=== PATIENT | male | born 1935 | race American Indian/Alaskan Native ===

== ENCOUNTER 2017-07-18 09:51 | Outpatient (CLI) | payer MEDICARE ==
--- NOTE | 2017-07-19 12:40 | Mammography Report ---
BILATERAL DIGITAL DIAGNOSTIC MAMMOGRAM with CAD and LEFT BREAST ULTRASOUND: 07/18/17 CLINICAL: 81-year-old male with left mastodynia. COMPARISON:07/26/16 mammogram and left breast ultrasound from [facility] FINDINGS: The breasts are almost entirely fatty. Stable moderate left subareolar fibroglandular densities. No mass, architectural distortion or suspicious calcifications.The right breast is negative. Ultrasound of the left breast (including all four quadrants and the retroareolar area) was performed. Stable retroareolar fibroglandular structures. No change compared to the prior exam. No mass or cyst. IMPRESSION: Stable left benign gynecomastia. BI-RADS CATEGORY: 2 -- Benign RECOMMENDATION: Clinical follow-up. COMMENT: Patient follow-up letters are generated by our [employer] application.
--- NOTE | 2017-07-19 12:52 | Ultrasound Report ---
BILATERAL DIGITAL DIAGNOSTIC MAMMOGRAM with CAD and LEFT BREAST ULTRASOUND: 07/18/17 CLINICAL: 81-year-old male with left mastodynia. COMPARISON:07/26/16 mammogram and left breast ultrasound from [facility] FINDINGS: The breasts are almost entirely fatty. Stable moderate left subareolar fibroglandular densities. No mass, architectural distortion or suspicious calcifications.The right breast is negative. Ultrasound of the left breast (including all four quadrants and the retroareolar area) was performed. Stable retroareolar fibroglandular structures. No change compared to the prior exam. No mass or cyst. IMPRESSION: Stable left benign gynecomastia. BI-RADS CATEGORY: 2 -- Benign RECOMMENDATION: Clinical follow-up. COMMENT: Patient follow-up letters are generated by our [employer] application.
== END 2017-07-18 09:52 | disposition home or self-care (01) ==
LOC: SPVWC 09:51
PROVIDERS: ATTEND Surgery
DX: N62 Hypertrophy of breast (principal); N64.4 Mastodynia; I10 Essential (primary) hypertension; E78.00 Pure hypercholesterolemia, unspecified; G47.30 Sleep apnea, unspecified; K21.9 Gastro-esophageal reflux disease without esophagitis; Z87.891 Personal history of nicotine dependence
CPT/HCPCS: 77066

== ENCOUNTER 2018-07-24 09:00 | Outpatient (CLI) | payer MEDICARE ==
--- NOTE | 2018-07-24 10:29 | Mammography Report ---
BILATERAL DIGITAL DIAGNOSTIC MAMMOGRAM with CAD and LEFT BREAST ULTRASOUND: 07/24/18 CLINICAL: 82-year-old male for followup of left gynecomastia. COMPARISON:07/18/17 FINDINGS: The breasts are almost entirely fatty.Stable mild left retroareolar fibroglandular densities and minimal right retroareolar fibroglandular densities. No mass, architectural distortion or suspicious calcifications. Ultrasound of the left breast (including all four quadrants and the retroareolar area) was performed and demonstrated mild benign gynecomastia with mild retroareolar fibroglandular structures. No mass, cyst or shadowing. IMPRESSION: No evidence of malignancy.Stable mild left benign gynecomastia. BI-RADS CATEGORY: 2 -- Benign RECOMMENDATION: Clinical follow-up. COMMENT: Patient follow-up letters are generated by our [employer] application.
== END 2018-07-24 09:01 | disposition home or self-care (01) ==
LOC: SPVWC 09:00
PROVIDERS: ATTEND Physician Assistant
DX: N62 Hypertrophy of breast (principal); E78.00 Pure hypercholesterolemia, unspecified; I10 Essential (primary) hypertension
CPT/HCPCS: 77066